=== PATIENT | female | born 1950 | race Two or more races ===

== ENCOUNTER 2023-05-03 10:31 | Emergency (ER) | payer OTHER ==
[~2023-05-03] VITALS: Ht 162.6 cm; Wt 71.7 kg
[2023-05-03 11:48] LABS: HEMATOCRIT 37.1 % (36.0-45.00); HEMOGLOBIN 12.4 g/dL (12.0-15.00); MEAN CELL VOLUME 88.7 fL (80.00-100.00); MEAN CORPUSCULAR HEMOGLOBIN 29.7 pg (27.00-32.0); MEAN CORPUSCULAR HGB CONC 33.4 g/dl (32.0-36.0); PLATELET COUNT 402 K/uL (150-450); RED BLOOD COUNT 4.18 M/uL (4.00-6.00); RED CELL DISTRIBUTION WIDTH 14.6 % (11.5-14.5)
[2023-05-03 12:25] LABS: CREATININE SERUM 0.59 mg/dL (0.55-1.02); GFR 100.19; POTASSIUM 3.48 mEq/L (3.5-5.1)
[2023-05-03 14:39] LABS: PH,URINE 5.5 (5.0-8.0); URINE APPEARANCE Clear; URINE BILIRRUBIN Negative (NEGATIVE); URINE BLOOD Negative; URINE COLOR Yellow; URINE GLUCOSE Negative (NEGATIVE); URINE LEUKOCYTE Moderate; URINE NITRATE Negative; URINE PROTEIN Trace (NEGATIVE); URINE UROBILINOGEN 0.2 E.U./dl
[2023-05-03 14:42] LABS: URINE BACTERIA 285.9 uL (0.0-1933); URINE EPITHELIAL CELLS 8.5 uL (0.0-38.8); URINE RBC 3.8 uL (0.0-20.8); URINE WBC 126.1 uL (0.0-23.2)
== END 2023-05-03 16:40 | disposition home or self-care (01) ==
LOC: ER 10:31
PROVIDERS: General Practice
DX: R53.81 Other malaise (principal); K52.89 Other specified noninfective gastroenteritis and colitis; I10 Essential (primary) hypertension
CPT/HCPCS: 36415; 96365; 96366; 99282; J0696; J2405; J7030

== ENCOUNTER 2024-06-27 14:31 | Outpatient (CLI) | payer OTHER ==
[~2024-06-27 14:31] MED LIST: AGRYLIN0.5 MG; ALPRAZOLAM0.25 MG; FLUOROMETHOLONE5 ML; HYOSCYAMINE0.125 M1; LATANOPROST2.5 ML; METOPROLOL SUCC25 MG
== END 2024-06-27 14:33 | disposition home or self-care (01) ==
LOC: SONOGRAMA 14:31
PROVIDERS: ATTEND Pathology Anatomic Pathology & Clinical Pathology
DX: E04.2 Nontoxic multinodular goiter (principal); D34 Benign neoplasm of thyroid gland; E07.89 Other specified disorders of thyroid

== ENCOUNTER → 2024-07-16 10:34 | Outpatient (CLI) | payer OTHER ==
[2024-07-16 11:36] LABS: HEMATOCRIT 36.6 % (36.0-45.00); HEMOGLOBIN 12.1 g/dL (12.0-15.00); MEAN CELL VOLUME 90.6 fL (80.00-100.00); MEAN CORPUSCULAR HGB CONC 33.1 g/dl (32.0-36.0); PLATELET COUNT 424 K/uL (150-450); RED BLOOD COUNT 4.05 M/uL (4.00-6.00); RED CELL DISTRIBUTION WIDTH 15.2 % (11.5-14.5)
== END | disposition home or self-care (01) ==
LOC: LAB 10:34
PROVIDERS: ATTEND Internal Medicine Hematology & Oncology
DX: D47.3 Essential (hemorrhagic) thrombocythemia (principal)

== ENCOUNTER 2024-10-02 12:26 | Outpatient (CLI) | payer OTHER | END 2024-10-02 12:29 | disposition home or self-care (01) | LOC: RAD 12:26 | PROVIDERS: ATTEND Internal Medicine | DX: M25.572 Pain in left ankle and joints of left foot (principal) ==

== ENCOUNTER 2024-10-23 11:27 | Outpatient (CLI) | payer OTHER ==
[2024-10-23 12:20] LABS: PH,URINE 6.5 (5.0-8.0); URINE APPEARANCE Clear; URINE BILIRRUBIN Negative (NEGATIVE); URINE BLOOD Negative; URINE COLOR Yellow; URINE GLUCOSE Negative (NEGATIVE); URINE KETONE Negative (NEGATIVE); URINE LEUKOCYTE Small; URINE NITRATE Negative; URINE PROTEIN Negative (NEGATIVE); URINE UROBILINOGEN 0.2 E.U./dl
[2024-10-23 12:24] LABS: URINE BACTERIA 50.1 uL (0.0-1933); URINE EPITHELIAL CELLS 4.5 uL (0.0-38.8); URINE WBC 39.8 uL (0.0-23.2)
[2024-10-23 12:36] LABS: CREATININE URINE RANDOM 67.8 MG/DL (30-125)
[2024-10-23 12:41] LABS: URINE CAST 0.14 uL (0.0-1.40); URINE RBC 1.1 uL (0.0-20.8)
== END 2024-10-23 11:32 | disposition home or self-care (01) ==
LOC: LAB 11:27
PROVIDERS: ATTEND Internal Medicine Hematology & Oncology
DX: D47.3 Essential (hemorrhagic) thrombocythemia (principal); R15.9 Full incontinence of feces; K59.4 Anal spasm; I10 Essential (primary) hypertension; F41.3 Other mixed anxiety disorders; K58.0 Irritable bowel syndrome with diarrhea; R80.8 Other proteinuria; E04.2 Nontoxic multinodular goiter; N39.0 Urinary tract infection, site not specified; R80.9 Proteinuria, unspecified; R94.4 Abnormal results of kidney function studies

== ENCOUNTER 2025-02-27 10:49 | Outpatient (CLI) | payer OTHER | END 2025-02-27 10:53 | disposition home or self-care (01) | LOC: SONOGRAMA 10:49 | PROVIDERS: ATTEND Internal Medicine | DX: E04.2 Nontoxic multinodular goiter (principal) ==